=== PATIENT | female | born 1950 ===

== ENCOUNTER 2020-08-15 08:15 | Observation (INO) ==
[~2020-08-15 08:15] MED LIST: Buffered Lidocaine 1% SYRIN 1 ml INTRADERM ONE; Famotidine IV 10 MG/ML 2 ml VIAL (20 mg) IV ONE; Glycopyrrolate IV 0.2 MG/ML 1 ML VIAL ONE; Ketamine HCL 50 mg/ml 10 ml VIAL (500 MG) ONE; Lactated Ringers 1000 ml BAG 1,000 ML IV SCH; Lidocaine 2% PF 5 ML VIAL ONE; Midazolam 2 mg/2 ml VIAL 1 mg/ml 2 ml VIAL (2 mg) ONE; Propofol 10 MG/ML 20 ML BTL ONE
[2020-08-15] MEDS ORDERED: Propofol 10 MG/ML 20 ML BTL ONE ×2 (08:34→08:36)
[2020-08-15] MEDS ORDERED: Famotidine IV 10 MG/ML 2 ml VIAL (20 mg) ONE (08:40)
[2020-08-15] MEDS ORDERED: ceFAZolin 2 GM PREMIX 2 GM/50 ML BAG ONE (08:40)
[2020-08-15] MEDS ORDERED: ROPIVACAINE 5 MG/ML 30 ML BTL (0.5%) ONE (08:56)
[2020-08-15] MEDS ORDERED: EPHEDrine (Pressors) 50 MG/ML VIAL ONE (10:40)
[2020-08-15] MEDS ORDERED: Phenylephrine IV 10 MG/ML 1 ml VIAL ONE (11:03)
[2020-08-15] MEDS ORDERED: Naloxone 0.4 mg VIAL 0.4 mg/ml 1 ml VIAL IV PRN ×2 (11:48→15:23)
[2020-08-15] MEDS ORDERED: HYDROmorphone 1 MG/1 ML SYRINGE IV PRN ×2 (11:48→15:23)
[2020-08-15] MEDS ORDERED: Ondansetron 4 mg VIAL 2 MG/ML 2 ml VIAL IV PRN ×3 (11:48→15:23)
[2020-08-15] MEDS ORDERED: fentaNYL 100 mcg/2 ml 50 MCG/ML VIAL IV PRN ×2 (11:48→15:28)
[2020-08-15] MEDS ORDERED: Glycopyrrolate IV 0.2 MG/ML 1 ML VIAL ONE (12:14)
[2020-08-15] MEDS ORDERED: Lactulose 30 ml UDC PO PRN (12:51)
[2020-08-15] MEDS ORDERED: Magnesium Hydroxide LIQ 30 ML UDC PO PRN (12:51)
[2020-08-15] MEDS ORDERED: Morphine 2 MG/ML SYRINGE IV PRN (12:51)
[2020-08-15] MEDS ORDERED: diPHENhydraMINE 25 mg TAB PO PRN (12:51)
[2020-08-15] MEDS ORDERED: diPHENhydraMINE IV 50 MG/ML 1 ml VIAL (BENADRYL) IV PRN (12:51)
[2020-08-15] MEDS ORDERED: Ondansetron ODT 4 mg TAB 4 MG TAB PO PRN (12:51)
[2020-08-15] MEDS: ceFAZolin 1 GM ADVAN 1 GM in NS 0.9% 50 ML 50 ML IVPB SCH (18:17)
[2020-08-15] MEDS: Lactated Ringers 1000 ml BAG 1,000 ML IV SCH ×2 (18:59→22:21)
[2020-08-15] MEDS ORDERED: NS 0.9% 1000 ml BAG 1,000 ML IV ONE (20:50)
[2020-08-15] MEDS: Magnesium Hydroxide LIQ 30 ML UDC PO SCH (21:21)
[2020-08-16] MEDS: ceFAZolin 1 GM ADVAN 1 GM in NS 0.9% 50 ML 50 ML IVPB SCH ×2 (03:14→10:39)
[2020-08-16 08:42] LABS: Hematocrit 31 % (35-47); Hemoglobin 10.5 g/dL (12.0-16.0); Mean Platelet Volume 8.6 fL (7.4-10.4); Platelet Count 165 10^3/uL (150-450)
[2020-08-16] MEDS: Magnesium Hydroxide LIQ 30 ML UDC PO SCH (08:43)
[2020-08-16 08:57] LABS: BUN/Creatinine Ratio 10.4 (8-20); Calcium 8.7 mg/dL (8.6-10.3); EGFR African American 104.7 (>60); EGFR Non-African American 86.5 (>60); Potassium 3.8 mmol/L (3.5-5.0)
[2020-08-16] MEDS ORDERED: Vitamin THERAPEUTIC TAB PO SCH (09:00)
[2020-08-16 11:56] VITALS: BP 110/50
== END 2020-08-16 15:40 | disposition home or self-care (01) ==
LOC: AA 08:17 → INTOOBSV 08:17 → SSU 14:05 → UNDODISIN 14:23
PROVIDERS: ADMIT Orthopaedic Surgery Adult Reconstructive Orthopaedic Surgery; ATTEND Orthopaedic Surgery Adult Reconstructive Orthopaedic Surgery